=== PATIENT | female | born 1945 | race Caucasian/White ===

== ENCOUNTER → 2016-11-14 06:15 | Outpatient (CLI) | payer BC ==
[2015-09-17 13:02] VITALS: BMI 25.1
[~2016-11-14 06:15] MED LIST: COZAAR25 MG PO; COZAAR50 MG PO; GLUCOPHAGE500 MG PO; LEVEMIR100 U/M1 SC; MOBIC7.5 MG PO; NOVOLOG100 U/M1 SC; PRAVACHOL40 MG PO
== END | disposition home or self-care (01) ==
LOC: D.CT 06:15
DX: N18.9 Chronic kidney disease, unspecified (principal)

== ENCOUNTER → 2017-04-30 12:30 | Outpatient (CLI) | payer BC ==
[2015-09-17 13:02] VITALS: BMI 25.1
[2017-04-30 12:49] LABS: APPEARANCE CLEAR (CLEAR); BILIRUBIN NEGATIVE (NEGATIVE); COLOR YELLOW (YELLOW); GLUCOSE NEGATIVE (NEGATIVE); KETONE NEGATIVE (NEGATIVE); LEUKOCYTE ESTERASE 1+ (NEGATIVE); NITRITE NEGATIVE (NEGATIVE); PROTEIN NEGATIVE (NEGATIVE); SPECIFIC GRAVITY 1.005 (1.005-1.020); UROBILINOGEN NORMAL (NORMAL)
[2017-04-30 12:52] LABS: RED CELLS - URINE 0-5 /hpf (0-5); WHITE CELLS - URINE 25-50 /hpf (0-5)
[2017-04-30 12:55] LABS: EPITHELIAL CELLS 0-5 /hpf (0-5)
[2017-04-30 12:56] LABS: BACTERIA FEW /hpf (NONE SEEN)
== END | disposition home or self-care (01) ==
LOC: D.LAB 12:30
PROVIDERS: Family Medicine
DX: R30.0 Dysuria (principal)

== ENCOUNTER → 2017-05-03 05:46 | Outpatient (CLI) | payer BC ==
[2015-09-17 13:02] VITALS: BMI 25.1
[2017-05-03 06:28] LABS: BASOPHILS 0.2 % (0-2); EOSINOPHILS 1.8 % (0-7); HEMATOCRIT 34.9 % (36.0-48.0); HEMOGLOBIN 11.8 g/dL (12-16); IMMATURE GRANULOCYTES 0.2 % (0-5); LYMPHOCYTES 34.1 % (15-50); MCH 31.7 pg (26.0-34.0); MCHC 33.8 g/dL (31.0-37.0); MCV 93.8 fL (80.0-100.0); MEAN PLATELET VOLUME 9.9 fL (7.4-10.4); MONOCYTES 6.9 % (2-11); NEUTROPHILS 56.8 % (40-80); PLATELET COUNT 187 10x3/uL (130-400); RBC 3.72 10x6/uL (4.00-5.40); RDW 13.1 % (11.5-14.5); WBC 5.1 10x3/uL (4.8-10.8)
[2017-05-03 06:36] LABS: HEMOGLOBIN A1C 8.3 % (4.8-6.0)
[2017-05-03 06:58] LABS: ALBUMIN 3.5 g/dL (3.4-5.0); ANION GAP 15.3 mmol/L (8-16); BILIRUBIN - TOTAL 0.25 mg/dL (0.2-1.3); CALCIUM 8.8 mg/dL (8.5-10.1); CARBON DIOXIDE 22.5 mmol/L (21.0-32.0); CHOL - HDL RATIO 4.3 ratio (2.3-4.1); CREATININE - SERUM 1.4 mg/dL (0.6-1.3); LDL-HDL RATIO 2.7 ratio (1.5-3.5); POTASSIUM - SERUM 4.8 mmol/L (3.5-5.1); THYROID STIMULATING HORMONE 1.61 uIU/mL (0.36-3.74)
== END ==
LOC: D.LAB 05:46
PROVIDERS: Family Medicine
DX: Z00.00 Encounter for general adult medical examination without abnormal findings (principal); E11.9 Type 2 diabetes mellitus without complications; N18.1 Chronic kidney disease, stage 1; I10 Essential (primary) hypertension; E78.5 Hyperlipidemia, unspecified

== ENCOUNTER → 2017-07-13 09:45 | Outpatient (CLI) | payer BC ==
[2015-09-17 13:02] VITALS: BMI 25.1
[2017-07-13 10:59] LABS: APPEARANCE CLEAR (CLEAR); COLOR YELLOW (YELLOW); SPECIFIC GRAVITY 1.015 (1.005-1.020)
[2017-07-13 11:00] LABS: BILIRUBIN NEGATIVE (NEGATIVE); EPITHELIAL CELLS 0-5 /hpf (0-5); GLUCOSE NEGATIVE (NEGATIVE); KETONE NEGATIVE (NEGATIVE); LEUKOCYTE ESTERASE 1+ (NEGATIVE); NITRITE NEGATIVE (NEGATIVE); PROTEIN TRACE mg/dL (NEGATIVE); RED CELLS - URINE 0-5 /hpf (0-5); UROBILINOGEN NORMAL (NORMAL)
[2017-07-13 11:01] LABS: HYALINE CAST 0-5 /lpf (NONE SEEN); MUCUS <1+ /lpf (NONE SEEN)
[2017-07-13 11:02] LABS: GRANULAR CAST RARE /lpf (NONE SEEN)
[2017-07-13 11:03] LABS: BACTERIA MODERATE /hpf (NONE SEEN)
== END | disposition home or self-care (01) ==
LOC: D.LAB 09:45
PROVIDERS: Family Medicine
DX: N39.0 Urinary tract infection, site not specified (principal); B37.9 Candidiasis, unspecified

== ENCOUNTER → 2017-08-13 07:51 | Outpatient (CLI) | payer BC ==
[2015-09-17 13:02] VITALS: BMI 25.1
[2017-08-13 08:21] LABS: BASOPHILS 0.2 % (0-2); EOSINOPHILS 1.3 % (0-7); HEMOGLOBIN 11.9 g/dL (12-16); IMMATURE GRANULOCYTES 0.2 % (0-5); LYMPHOCYTES 30.1 % (15-50); MCH 31.5 pg (26.0-34.0); MCV 92.6 fL (80.0-100.0); MEAN PLATELET VOLUME 9.4 fL (7.4-10.4); MONOCYTES 6.7 % (2-11); NEUTROPHILS 61.5 % (40-80); PLATELET COUNT 187 10x3/uL (130-400); RBC 3.78 10x6/uL (4.00-5.40); RDW 12.9 % (11.5-14.5); WBC 4.6 10x3/uL (4.8-10.8)
[2017-08-13 08:26] LABS: CREATININE - URINE 118.5 mg/dL (30-125); PRO/CRE RATIO URINE 0.4 mg/g; PROTEIN - URINE 45.8 mg/dL (0.0-11.9)
[2017-08-13 08:41] LABS: ANION GAP 12.8 mmol/L (8-16); CALCIUM 8.8 mg/dL (8.5-10.1); CARBON DIOXIDE 25.1 mmol/L (21.0-32.0); CREATININE - SERUM 1.6 mg/dL (0.6-1.3); PHOSPHOROUS 3.5 mg/dL (2.5-4.9); POTASSIUM - SERUM 4.9 mmol/L (3.5-5.1)
== END | disposition home or self-care (01) ==
LOC: D.LAB 07:51
PROVIDERS: Internal Medicine Nephrology
DX: Z90.5 Acquired absence of kidney (principal); I12.9 Hypertensive chronic kidney disease with stage 1 through stage 4 chronic kidney disease, or unspecified chronic kidney disease; N18.2 Chronic kidney disease, stage 2 (mild); E11.22 Type 2 diabetes mellitus with diabetic chronic kidney disease; Z68.27 Body mass index [BMI] 27.0-27.9, adult

== ENCOUNTER → 2017-09-03 08:41 | Outpatient (CLI) | payer BC ==
[2015-09-17 13:02] VITALS: BMI 25.1
== END | disposition home or self-care (01) ==
LOC: D.RAD 08:41
DX: M25.521 Pain in right elbow (principal); M25.531 Pain in right wrist; M79.601 Pain in right arm

== ENCOUNTER → 2017-09-14 13:28 | Outpatient (CLI) | payer BC ==
[2015-09-17 13:02] VITALS: BMI 25.1
== END | disposition home or self-care (01) ==
LOC: D.LAB 13:28
DX: R30.0 Dysuria (principal)

== ENCOUNTER → 2017-10-19 12:39 | Outpatient (CLI) | payer BC ==
[2015-09-17 13:02] VITALS: BMI 25.1
== END | disposition home or self-care (01) ==
LOC: D.MAMMO 11:00
DX: Z12.31 Encounter for screening mammogram for malignant neoplasm of breast (principal)

== ENCOUNTER → 2018-01-29 05:25 | Outpatient (CLI) | payer BC ==
[2015-09-17 13:02] VITALS: BMI 25.1
== END | disposition home or self-care (01) ==
LOC: D.US 05:25
DX: N64.4 Mastodynia (principal)

== ENCOUNTER → 2018-02-13 05:40 | Outpatient (CLI) | payer BC ==
[2015-09-17 13:02] VITALS: BMI 25.1
[2018-02-13 06:28] LABS: ALBUMIN 3.6 g/dL (3.4-5.0); ANION GAP 13.9 mmol/L (8-16); BILIRUBIN - TOTAL 0.3 mg/dL (0.2-1.3); CALCIUM 8.7 mg/dL (8.5-10.1); CARBON DIOXIDE 24.3 mmol/L (21.0-32.0); CHOL - HDL RATIO 3.7 ratio (2.3-4.1); LDL-HDL RATIO 2.4 ratio (1.5-3.5); POTASSIUM - SERUM 5.2 mmol/L (3.5-5.1); PROTEIN - SERUM 7.3 g/dL (6.4-8.2); THYROID STIMULATING HORMONE 1.06 uIU/mL (0.36-3.74)
[2018-02-13 06:57] LABS: BASOPHILS 0.2 % (0-2); EOSINOPHILS 2.1 % (0-7); HEMATOCRIT 33.8 % (36.0-48.0); HEMOGLOBIN 11.1 g/dL (12-16); IMMATURE GRANULOCYTES 0.2 % (0-5); LYMPHOCYTES 29.8 % (15-50); MCHC 32.8 g/dL (31.0-37.0); MCV 94.4 fL (80.0-100.0); MEAN PLATELET VOLUME 9.6 fL (7.4-10.4); MONOCYTES 6.9 % (2-11); NEUTROPHILS 60.8 % (40-80); PLATELET COUNT 202 10x3/uL (130-400); RBC 3.58 10x6/uL (4.00-5.40); RDW 12.9 % (11.5-14.5); WBC 5.8 10x3/uL (4.8-10.8)
== END | disposition home or self-care (01) ==
LOC: D.LAB 05:40
PROVIDERS: Family Medicine
DX: I10 Essential (primary) hypertension (principal); E11.9 Type 2 diabetes mellitus without complications; M51.9 Unspecified thoracic, thoracolumbar and lumbosacral intervertebral disc disorder; G09 Sequelae of inflammatory diseases of central nervous system

== ENCOUNTER → 2018-03-26 05:10 | Outpatient (CLI) | payer BC ==
[2015-09-17 13:02] VITALS: BMI 25.1
[2018-03-26 05:50] LABS: ANION GAP 14.7 mmol/L (8-16); CALCIUM 8.9 mg/dL (8.5-10.1); CARBON DIOXIDE 24.8 mmol/L (21.0-32.0); POTASSIUM - SERUM 4.5 mmol/L (3.5-5.1)
== END | disposition home or self-care (01) ==
LOC: D.LAB 03-25 12:48
PROVIDERS: Family Medicine
DX: E11.9 Type 2 diabetes mellitus without complications (principal); I10 Essential (primary) hypertension

== ENCOUNTER → 2018-05-16 07:29 | Outpatient (CLI) | payer BC ==
[2015-09-17 13:02] VITALS: BMI 25.1
[2018-05-16 08:57] LABS: CREATININE - SERUM 1.9 mg/dL (0.6-1.3)
== END | disposition home or self-care (01) ==
LOC: D.CT 07:29
PROVIDERS: Urology
DX: Z85.528 Personal history of other malignant neoplasm of kidney (principal); Z90.5 Acquired absence of kidney

== ENCOUNTER → 2018-05-22 05:27 | Outpatient (CLI) | payer BC ==
[2015-09-17 13:02] VITALS: BMI 25.1
== END | disposition home or self-care (01) ==
LOC: D.CT 05:27
DX: R91.8 Other nonspecific abnormal finding of lung field (principal)

== ENCOUNTER → 2018-06-19 10:51 | Outpatient (CLI) | payer BC ==
[2015-09-17 13:02] VITALS: BMI 25.1
[2018-06-19 11:05] LABS: ANION GAP 12.8 mmol/L (8-16); CALCIUM 8.8 mg/dL (8.5-10.1); CARBON DIOXIDE 26.5 mmol/L (21.0-32.0); CREATININE - SERUM 1.9 mg/dL (0.6-1.3); POTASSIUM - SERUM 5.3 mmol/L (3.5-5.1)
== END | disposition home or self-care (01) ==
LOC: D.LAB 10:51
PROVIDERS: Family Medicine
DX: E11.9 Type 2 diabetes mellitus without complications (principal); Z79.4 Long term (current) use of insulin; C64.9 Malignant neoplasm of unspecified kidney, except renal pelvis

== ENCOUNTER → 2018-07-11 05:28 | Outpatient (CLI) | payer BC ==
[2015-09-17 13:02] VITALS: BMI 25.1
[2018-07-11 06:32] LABS: ALBUMIN 3.5 g/dL (3.4-5.0); ANION GAP 11.9 mmol/L (8-16); BILIRUBIN - TOTAL 0.37 mg/dL (0.2-1.3); CALCIUM 8.4 mg/dL (8.5-10.1); CARBON DIOXIDE 25.7 mmol/L (21.0-32.0); CREATININE - SERUM 1.7 mg/dL (0.6-1.3); POTASSIUM - SERUM 4.6 mmol/L (3.5-5.1); PROTEIN - SERUM 6.9 g/dL (6.4-8.2)
== END | disposition home or self-care (01) ==
LOC: D.LAB 05:28
PROVIDERS: Family Medicine
DX: E11.9 Type 2 diabetes mellitus without complications (principal); I10 Essential (primary) hypertension; R60.9 Edema, unspecified

== ENCOUNTER → 2018-10-11 05:15 | Outpatient (CLI) | payer BC ==
[2015-09-17 13:02] VITALS: BMI 25.1
[2018-10-11 05:53] LABS: BASOPHILS 0.1 % (0-2); EOSINOPHILS 0 % (0-7); HEMATOCRIT 33.9 % (36.0-48.0); HEMOGLOBIN 11.4 g/dL (12-16); IMMATURE GRANULOCYTES 0.2 % (0-5); LYMPHOCYTES 19.6 % (15-50); MCH 30.8 pg (26.0-34.0); MCHC 33.6 g/dL (31.0-37.0); MCV 91.6 fL (80.0-100.0); MEAN PLATELET VOLUME 9.8 fL (7.4-10.4); MONOCYTES 4.8 % (2-11); NEUTROPHILS 75.3 % (40-80); PLATELET COUNT 219 10x3/uL (130-400); WBC 8.1 10x3/uL (4.8-10.8)
== END | disposition home or self-care (01) ==
LOC: D.LAB 05:15
PROVIDERS: Family Medicine
DX: R05 Cough (principal)

== ENCOUNTER → 2018-10-25 05:16 | Outpatient (CLI) | payer BC ==
[2015-09-17 13:02] VITALS: BMI 25.1
== END | disposition home or self-care (01) ==
LOC: D.CT 05:16
DX: R91.1 Solitary pulmonary nodule (principal)

== ENCOUNTER 2019-01-21 05:10 | Day surgery (SDC) | payer BC ==
[2019-01-20 13:09] LABS: HEMATOCRIT 33.3 % (36.0-48.0); HEMOGLOBIN 11.2 g/dL (12-16); MCH 30.7 pg (26.0-34.0); MCHC 33.6 g/dL (31.0-37.0); MCV 91.2 fL (80.0-100.0); MEAN PLATELET VOLUME 9.3 fL (7.4-10.4); RBC 3.65 10x6/uL (4.00-5.40); RDW 13.1 % (11.5-14.5); WBC 5.1 10x3/uL (4.8-10.8)
[2019-01-20 13:15] LABS: INR 0.97 (0.85-1.17); PROTIME 12.4 SECONDS (11.6-15.0)
[2019-01-20 13:17] LABS: ANION GAP 15.6 mmol/L (8-16); CARBON DIOXIDE 23.4 mmol/L (21.0-32.0)
[~2019-01-21] VITALS: Ht 157.5 cm; Wt 68.0 kg
[~2019-01-21 05:10] MED LIST changes: +GLUCOTROL 5 MG T5 MG PO; +LEVEMIR FL100 UNIT/1 SQ; -LEVEMIR100 U/M1 SC; +NORVASC5 MG PO
[2019-01-21] MEDS ORDERED: NORVASC5 MG PO (05:49)
[2019-01-21 05:52] VITALS: BP 124/54; Ht 157.5 cm; Wt 68.0 kg
[2019-01-21] MEDS ORDERED: HYDROCODON-ACE1 EAC7 PO (07:36)
[2019-01-21] MEDS ORDERED: DURICEF500 MG PO (07:36)
--- NOTE | 2019-01-21 07:54 | NUR ---
CARE ASSUMED FROM TULIO ELISE RN
--- NOTE | 2019-01-21 13:10 | OP ---
PATIENT NAME: HARRY GRIMM MEDICAL RECORD: [id number] :45 LOCATION:[facility] ADMISSION DATE: SURGEON: KUSHAL PIERRE DO DATE OF OPERATION: 01/21/2019 PROCEDURE PERFORMED: Left index A1 mannie release. PREOPERATIVE DIAGNOSIS: Left index trigger finger. POSTOPERATIVE DIAGNOSIS: Left index trigger finger. INDICATIONS: Ms. Grimm is a 73-year-old female who has had the other 9 A1 pulleys released, but this one was not triggering at that time and this just started recently. She said she had injections in the past that did not help. She wanted something done surgically as soon as possible. She is tired of it, affecting her activities of living, she has to wake up in the morning and have to extend it herself as it was caught. She is aware of the risks and benefits of the procedure including infection, bleeding, damage to nerves and vessels, need for further surgery and she signed the consent. SURGEON: Kushal Pierre DO DESCRIPTION OF PROCEDURE: The patient was taken to the operative suite, laid in supine position, given general anesthetic. LMA was placed, given 2 grams Ancef preoperatively. Left upper extremity was prepped and draped in sterile fashion. Timeout was performed, everyone was in agreement with the correct side, site, patient, and procedure. The Esmarch was then used to exsanguinate the left upper extremity and tourniquet was inflated to 250 mmHg, it was up for 9 minutes throughout the procedure. Incision began longitudinally over the A1 mannie and over the index finger of the left hand with a 15 blade scalpel. Then, blunt dissection was made down to the A1 mannie with Ragnells. Any soft tissue was released off of the A1 mannie at that time with a pickup and scissors. Then, the A1 mannie was released from [id number] and the flexor tendons were pulled up through the skin, ensuring that there was no triggering or it was not caught as well as the finger was flexed and extended easily. The tourniquet was then let down at 9 minutes and then 6 mL of 0.5% Marcaine were injected around the site. Any bleeding was coagulated with a bipolar at that time. The incision was then closed with 4-0 nylon and 2 horizontal mattress sutures and then Adaptic, 4 x 4's, Kerlix, and Coban was lightly wrapped on the hand. The patient was awakened and taken to recovery in stable condition. BLOOD LOSS: Minimal. COMPLICATIONS: None. TRANSINT:[id number] Voice Confirmation ID: [id number] DOCUMENT ID: [id number] OPERATIVE REPORT [id number] HARRY GRIMM MICHAEL D, DO at 1310 CC: [id number] DICTATION DATE: 01/21/19 0744 [employer] MAKER: 01/21/19 0927 [facility] [address] [place] [address]
== END 2019-01-21 09:24 | disposition home or self-care (01) ==
LOC: D.PAN → D.OPS 05:10 → D.PAN 13:30
PROVIDERS: Anesthesiology; ATTEND Orthopaedic Surgery
DX: M65.322 Trigger finger, left index finger (principal); Z01.812 Encounter for preprocedural laboratory examination

== ENCOUNTER → 2019-04-24 05:27 | Outpatient (CLI) | payer BC ==
[2019-01-21 05:52] VITALS: BMI 27.5
[~2019-04-24 05:27] MED LIST changes: +DURICEF500 MG PO; +HYDROCODON-ACE1 EAC7 PO
[2019-04-24 05:49] LABS: BASOPHILS 0.2 % (0-2); EOSINOPHILS 1.9 % (0-7); HEMATOCRIT 34.1 % (36.0-48.0); HEMOGLOBIN 11.5 g/dL (12-16); IMMATURE GRANULOCYTES 0.2 % (0-5); LYMPHOCYTES 24.2 % (15-50); MCH 30.4 pg (26.0-34.0); MCHC 33.7 g/dL (31.0-37.0); MCV 90.2 fL (80.0-100.0); MEAN PLATELET VOLUME 9.4 fL (7.4-10.4); MONOCYTES 5.4 % (2-11); NEUTROPHILS 68.1 % (40-80); PLATELET COUNT 198 10x3/uL (130-400); RBC 3.78 10x6/uL (4.00-5.40); RDW 13.4 % (11.5-14.5); WBC 6.3 10x3/uL (4.8-10.8)
[2019-04-24 06:12] LABS: ALBUMIN 3.5 g/dL (3.4-5.0); ANION GAP 12.1 mmol/L (8-16); BILIRUBIN - TOTAL 0.28 mg/dL (0.2-1.3); CALCIUM 8.4 mg/dL (8.5-10.1); CARBON DIOXIDE 26.5 mmol/L (21.0-32.0); CHOL - HDL RATIO 3.8 ratio (2.3-4.1); CREATININE - SERUM 1.6 mg/dL (0.6-1.3); LDL-HDL RATIO 2.3 ratio (1.5-3.5); POTASSIUM - SERUM 4.6 mmol/L (3.5-5.1); PROTEIN - SERUM 7.2 g/dL (6.4-8.2); THYROID STIMULATING HORMONE 1.31 uIU/mL (0.36-3.74)
[2019-04-24 07:31] LABS: APPEARANCE CLEAR (CLEAR); BILIRUBIN NEGATIVE (NEGATIVE); COLOR YELLOW (YELLOW); GLUCOSE NEGATIVE (NEGATIVE); KETONE NEGATIVE (NEGATIVE); NITRITE NEGATIVE (NEGATIVE); PROTEIN NEGATIVE (NEGATIVE); UROBILINOGEN NORMAL (NORMAL)
[2019-04-24 07:32] LABS: BACTERIA FEW /hpf (NONE SEEN); EPITHELIAL CELLS 0-5 /hpf (0-5); MUCUS <1+ /lpf (NONE SEEN); WHITE CELLS - URINE OCC /hpf (0-5)
[2019-04-24 07:33] LABS: TALC POWDER CRYSTALS 0-5 /hpf (NONE SEEN)
== END | disposition home or self-care (01) ==
LOC: D.LAB 04-23 15:51
PROVIDERS: ATTEND Family Medicine
DX: I10 Essential (primary) hypertension (principal); M19.90 Unspecified osteoarthritis, unspecified site; E11.9 Type 2 diabetes mellitus without complications

== ENCOUNTER → 2019-06-26 09:50 | Outpatient (CLI) | payer BC ==
[2019-01-21 05:52] VITALS: BMI 27.5
[2019-06-26 10:19] LABS: ANION GAP 12.4 mmol/L (8-16); CALCIUM 8.7 mg/dL (8.5-10.1); CARBON DIOXIDE 26.9 mmol/L (21.0-32.0); CREATININE - SERUM 1.7 mg/dL (0.6-1.3); POTASSIUM - SERUM 4.3 mmol/L (3.5-5.1)
== END | disposition home or self-care (01) ==
LOC: D.LAB 09:50
PROVIDERS: ATTEND Family Medicine
DX: E11.22 Type 2 diabetes mellitus with diabetic chronic kidney disease (principal); I12.9 Hypertensive chronic kidney disease with stage 1 through stage 4 chronic kidney disease, or unspecified chronic kidney disease; N18.9 Chronic kidney disease, unspecified

== ENCOUNTER 2019-11-29 15:07 | Inpatient (IN) | payer BC ==
[~2019-11-29] VITALS: Ht 157.5 cm; Wt 68.0 kg
[2019-11-29 17:14] LABS: BASOPHILS 0.1 % (0-2); EOSINOPHILS 0.2 % (0-7); HEMATOCRIT 35.3 % (36.0-48.0); HEMOGLOBIN 11.8 g/dL (12-16); IMMATURE GRANULOCYTES 0.2 % (0-5); MCH 30.9 pg (26.0-34.0); MCHC 33.4 g/dL (31.0-37.0); MCV 92.4 fL (80.0-100.0); MEAN PLATELET VOLUME 9.4 fL (7.4-10.4); MONOCYTES 6.4 % (2-11); NEUTROPHILS 82.1 % (40-80); PLATELET COUNT 177 10x3/uL (130-400); RBC 3.82 10x6/uL (4.00-5.40); RDW 13.2 % (11.5-14.5); WBC 10.9 10x3/uL (4.8-10.8)
[2019-11-29 17:22] LABS: CALC OSMOLALITY 272 mosm/kg (275-300); CALCIUM 8.4 mg/dL (8.5-10.1); CARBON DIOXIDE 28.2 mmol/L (21.0-32.0); CHLORIDE - SERUM 97 mmol/L (98-107); CREATININE - SERUM 1.7 mg/dL (0.6-1.3); GLUCOSE 160 mg/dL (74-106); POTASSIUM - SERUM 4.2 mmol/L (3.5-5.1); SODIUM 133 mmol/L (136-145); UREA NITROGEN 23 mg/dL (7-18); eGFR NON AFRICAN AMERICAN 31 mL/min (90-120)
[2019-11-29 17:37] LABS: ALBUMIN 3.3 g/dL (3.4-5.0); ALKALINE PHOSPHATASE 115 U/L (30-120); ALT (SGPT) 84 U/L (10-68); BILIRUBIN - TOTAL 0.63 mg/dL (0.2-1.3); CKMB 0.7 U/L (0.0-3.6); CREATINE KINASE 103 UL (21-215); MAGNESIUM - SERUM 1.9 mg/dL (1.8-2.4); PROTEIN - SERUM 7.4 g/dL (6.4-8.2); TROPONIN-I < 0.017 ng/mL (0.000-0.060)
--- NOTE | 2019-11-29 18:11 | NUR ---
PT TRANSPORTED TO CT AT THIS TIME.
[2019-11-29 18:33] VITALS: BP 132/57
[2019-11-29 19:40] VITALS: BP 137/67
--- NOTE | 2019-11-29 20:40 | NUR ---
PT ARRIVED TO ROOM FROM ER VIA STRETCHER. PT AMBULATORY, GAIT SLOW AND STEADY. RR EVEN AND UNLABORED, NO S/SX OF DISTRESS OBSERVED AT THIS TIME. CALL LIGHT IN REACH. WILL MONITOR.
[2019-11-29] MEDS ORDERED: LANTUS SQ (22:09)
[2019-11-29 23:16] VITALS: BP 123/45
[2019-11-29] MEDS ORDERED: KEFLEX500 MG PO (23:17)
[2019-11-30 01:24] VITALS: BP 141/61
[2019-11-30 04:59] VITALS: BP 123/44
[2019-11-30 05:12] LABS: BASOPHILS 0.2 % (0-2); EOSINOPHILS 0.6 % (0-7); HEMATOCRIT 33.3 % (36.0-48.0); IMMATURE GRANULOCYTES 0.1 % (0-5); LYMPHOCYTES 10.4 % (15-50); MCH 30.5 pg (26.0-34.0); MCV 92.2 fL (80.0-100.0); MEAN PLATELET VOLUME 9.5 fL (7.4-10.4); MONOCYTES 7.1 % (2-11); NEUTROPHILS 81.6 % (40-80); PLATELET COUNT 171 10x3/uL (130-400); RBC 3.61 10x6/uL (4.00-5.40); RDW 13.2 % (11.5-14.5); WBC 8.8 10x3/uL (4.8-10.8)
[2019-11-30 05:39] LABS: ALBUMIN 2.8 g/dL (3.4-5.0); ANION GAP 12.5 mmol/L (8-16); BILIRUBIN - TOTAL 0.56 mg/dL (0.2-1.3); CALCIUM 8.1 mg/dL (8.5-10.1); CARBON DIOXIDE 25.5 mmol/L (21.0-32.0); CREATININE - SERUM 1.6 mg/dL (0.6-1.3); PROTEIN - SERUM 6.8 g/dL (6.4-8.2)
--- NOTE | 2019-11-30 07:27 | NUR ---
PT RESTING PEACEFULLY IN BED, EYES CLOSED, RESPIRATIONS EVEN AND UNLABORED. NO SIGNS OR SYMTPOMS OF ACUTE DISTRESS NOTED AT THIS TIME. CL INREACH SRX2.
[2019-11-30 09:04] LABS: CHOL - HDL RATIO 4.2 ratio (2.3-4.1); LDL-HDL RATIO 2.6 ratio (1.5-3.5)
[2019-11-30 09:50] VITALS: BP 133/65
--- NOTE | 2019-11-30 13:55 | NUR ---
PT AWAKE/ALERT/ORIENTED, LYING IN BED WATCHING TELIVISION. SHE HAS NO COMPLAINTS OR CONCERN, ALL QUESTIONS ANSWERED TO THE BEST OF MY ABILITY. NO FAMILY PRESENT AT BEDSIDE, THOUGH HAS BEEN IN AND OUT. PT MOVES INDEPENDENTLY WITHOUT DIFFICULTY. CL IN REACH, SRX2.
[2019-11-30 14:15] VITALS: BP 124/53
--- NOTE | 2019-11-30 17:19 | NUR ---
I have reviewed this patient and I concur with the Shift Assessment completed by the Licensed Practical Nurse today this shift.
[2019-11-30 18:34] VITALS: BP 119/53
--- NOTE | 2019-11-30 19:10 | NUR ---
REPORT RECEIVED. PT CARE ASSUMED. PT UP IN BED WATCHING TV, RR EVEN AND UNLABORED ON RA. FREQUENT NON-PRODUCTIVE COUGH. DENIES NEEDS AT THIS TIME. AT BEDSIDE, CALL LIGHT IN REACH. WILL CTM.
[2019-11-30 20:00] VITALS: BP 132/62
[2019-12-01] VITALS (7 sets, daily range): BP systolic 111–131; BP diastolic 45–66; Ht 157.5 cm; Wt 68.0 kg
[2019-12-01 05:00] LABS: BASOPHILS 0.2 % (0-2); EOSINOPHILS 1.8 % (0-7); HEMATOCRIT 32.1 % (36.0-48.0); HEMOGLOBIN 10.7 g/dL (12-16); IMMATURE GRANULOCYTES 0.3 % (0-5); LYMPHOCYTES 19.2 % (15-50); MCH 30.4 pg (26.0-34.0); MCHC 33.3 g/dL (31.0-37.0); MCV 91.2 fL (80.0-100.0); MEAN PLATELET VOLUME 9.6 fL (7.4-10.4); MONOCYTES 6.8 % (2-11); NEUTROPHILS 71.7 % (40-80); PLATELET COUNT 177 10x3/uL (130-400); RBC 3.52 10x6/uL (4.00-5.40); RDW 13.3 % (11.5-14.5); WBC 6.7 10x3/uL (4.8-10.8)
[2019-12-01 05:22] LABS: ANION GAP 12.9 mmol/L (8-16); CALCIUM 8.4 mg/dL (8.5-10.1); CARBON DIOXIDE 26.2 mmol/L (21.0-32.0); CREATININE - SERUM 1.4 mg/dL (0.6-1.3); POTASSIUM - SERUM 4.1 mmol/L (3.5-5.1)
--- NOTE | 2019-12-01 07:14 | NUR ---
PT AWAKE AND ORIENTED, LYING IN BED. NO FAMILY AT BEDISDE. NO COMPLAINTS OR CONCERNS AT THIS TIME. CL IN REACH, SRX2.
--- NOTE | 2019-12-01 09:51 | NUR ---
PT AWAKE AND ORIENTED, STATES SHE COUGHED ALL NIGHT IS VERY TIRED FROM DOING SO. NO COMPLAINTS OR CONCERNS OTHER THANTHE COUGHING. ANSWERED AL QUESTIONS TO THE BEST OF MY ABILITY. NO FAMILY AT BEDSIDE. CL IN REACH, SRX2.
[2019-12-01 09:55] LABS: APPEARANCE CLEAR (CLEAR); COLOR YELLOW (YELLOW)
[2019-12-01 09:56] LABS: BACTERIA FEW /hpf (NEGATIVE); BILIRUBIN NEGATIVE (NEGATIVE); EPITHELIAL CELLS 0-5 /hpf (0-5); GLUCOSE NEGATIVE (NEGATIVE); GRANULAR CAST RARE /lpf (NONE SEEN); KETONE NEGATIVE (NEGATIVE); NITRITE NEGATIVE (NEGATIVE); PROTEIN 1+ mg/dL (NEGATIVE); RED CELLS - URINE OCC /hpf (0-5); UROBILINOGEN NORMAL (NORMAL); WHITE CELLS - URINE OCC /hpf (NEGATIVE)
--- NOTE | 2019-12-01 11:47 | NUR ---
I have reviewed this patient and I concur with the Shift Assessment completed by the Licensed Practical Nurse today this shift.
--- NOTE | 2019-12-01 19:20 | NUR ---
REPORT RECEIVED, WILL CONTINUE POC. PATIENT IS AAOX4, LYING IN SEMI-FOWLERS POSITION. NO S/S OF DISTRESS OBSERVED, RR EVEN AND UNLABORED ON ROOM AIR. PIV TO LT HAND, AZITHROMYCIN INFUSING AT THIS TIME THEN WILL SALINE LOCK. PATIENT DENIES NEEDS AT THIS TIME. CL IN REACH, BED LOCKED AND LOWERED. WILL CTM.
--- NOTE | 2019-12-01 20:56 | NUR ---
FSBS 488, 20 UNITS HUMALOG ADMINISTERED PER ORDER AND DR. AMANDA JONES.
--- NOTE | 2019-12-01 21:29 | NUR ---
PAGED DR. PATEL FOR THE 2ND TIME FOR PATIENT FSBS 488
--- NOTE | 2019-12-01 22:16 | NUR ---
CALLED DR. PATEL'S OFFICE NUMBER DUE TO PAGES NOT BEING RETURNED. PERSON IN OFFICE SAID SHE'D WOULD TEXT HIM, CALLBACK NUMBER GIVEN TO CAMELID FIBER SORTER.
--- NOTE | 2019-12-01 22:24 | NUR ---
SPOKE TO DR. PATEL, HE INSTRUCTED TO ADMINISTERED 12UNITS OF HUMALOG. SPOKE WITH PATIENT WHO SAID THAT'S STILL WAY TOO MUCH FOR HER NOW BLOOD SUGAR OF 402. SHE SAID SHE WILL TAKE 5 UNITS AND TO RECHECK HER FSBS IN AN HOUR.
--- NOTE | 2019-12-02 03:47 | NUR ---
I have reviewed this patient and I concur with the Shift Assessment completed by the Licensed Practical Nurse today this shift.
[2019-12-02 04:30] VITALS: BP 110/62
[2019-12-02 06:49] LABS: BASOPHILS 0.5 % (0-2); EOSINOPHILS 3.1 % (0-7); HEMATOCRIT 31.4 % (36.0-48.0); HEMOGLOBIN 10.6 g/dL (12-16); IMMATURE GRANULOCYTES 0.2 % (0-5); MCH 30.5 pg (26.0-34.0); MCHC 33.8 g/dL (31.0-37.0); MCV 90.5 fL (80.0-100.0); MEAN PLATELET VOLUME 9.4 fL (7.4-10.4); MONOCYTES 8.5 % (2-11); NEUTROPHILS 60.7 % (40-80); PLATELET COUNT 208 10x3/uL (130-400); RBC 3.47 10x6/uL (4.00-5.40); RDW 13.2 % (11.5-14.5)
[2019-12-02 06:53] LABS: WBC 4.3 10x3/uL (4.8-10.8)
[2019-12-02 06:55] LABS: ANION GAP 14.1 mmol/L (8-16); CALCIUM 8.2 mg/dL (8.5-10.1); CREATININE - SERUM 1.4 mg/dL (0.6-1.3); POTASSIUM - SERUM 4.1 mmol/L (3.5-5.1)
--- NOTE | 2019-12-02 07:23 | NUR ---
REPORT RECEIVED. WILL CONTINUE WITH POC. PT CURRENTLY LYING SEMI FOWLERS. CALL LIGHT W/I REACH. PT IS AAO AND UP AD HEATH. RR EVEN AND UNLABORED ON RA. PT CURRENTLY UNDERGOING RESP TRX. L.HAND PIV SALINE LOCKED. NO S/S OF DISTRESS NOTED. PT DENIES ANY NEEDS. WILL CTM.
[2019-12-02 08:32] VITALS: BP 120/58
[2019-12-02 13:01] VITALS: BP 124/50
--- NOTE | 2019-12-02 15:42 | NUR ---
I have reviewed this patient and I concur with the Shift Assessment completed by the Licensed Practical Nurse today this shift.
[2019-12-02 16:53] VITALS: BP 127/73
--- NOTE | 2019-12-02 19:20 | NUR ---
REPORT RECEIVED, WILL CONTINUE POC. PATIENT IS AAOX4, LYING IN SEMI-FOWLERS POSITION. NO S/S OF DISTRESS OBSERVED, RR EVEN AND UNLABORED ON ROOM AIR. PIV TO LT HAND, URIEL ROBERTO, VANDANA C/D/I. INFORMED PATIENT IV ABX WERE DUE AT 1900 AND THIS NURSE WOULD BE BACK TO BEGIN INFUSION. SHE C/O OF IV SITE PAIN WHEN ANY ABX ARE BEING INFUSED AND REQUESTED AN ICE PACK. PATIENT DENIES FURTHER NEEDS AT THIS TIME. CL IN REACH, BED LOCKED AND LOWERED. WILL CTM.
--- NOTE | 2019-12-02 19:41 | NUR ---
BROUGHT PATIENT ICE PACK FOR IV SITE. OFFERED TO RESITE IV TO A LESS SENSITIVE AREA, PATIENT REFUSED. BEGAN ROCEPHIN INFUSION. PATIENT TOLERATED WELL.
[2019-12-02 20:00] VITALS: BP 118/58
[2019-12-03] VITALS: BP 138/60
--- NOTE | 2019-12-03 01:14 | NUR ---
I have reviewed this patient and I concur with the Shift Assessment completed by the Licensed Practical Nurse today this shift.
[2019-12-03 04:00] VITALS: BP 127/53
[2019-12-03] MEDS ORDERED: Tessalon Perle PO ×2 (07:17→07:28)
[2019-12-03] MEDS ORDERED: Augmentin 500-125 TA PO ×2 (07:17→07:28)
--- NOTE | 2019-12-03 07:42 | NUR ---
PATIENT IS AWAKE AND ALERT. SHE HAS HAD MANY VISITORS. SHE WILL GET HER LAST ROUND OF ANTIBIOTICS AND BE DISCHARGED TODAY.
--- NOTE | 2019-12-03 08:23 | MORECARE ---
CASE MANAGEMENT DISCHARGE SUMMARY PATIENT: HARRY HAYS UNIT: [id number] ADM DATE: 11/29/19 AGE: 74 : 45 SEX: F ROOM/BED: D.2110 AUTHOR: CUCA CARRANZA PHYSICIAN: REFERRING PHYSICIAN: HAILEY PATEL MD DATE OF SERVICE: 12/03/19 Discharge Plan Patient Name: HARRY HAYS Facility: [facility]:[place] : 1945 Planned Disposition: Home or Self Care Anticipated Discharge Date: Discharge Date: Expected LOS: Initial Reviewer: [email or web address] Initial Review Date: 12/03/2019 Generated: 12/03/19 9:22 am Patient Name: HARRY HAYS Page 62029 at 0823 All edits/amendments must be made on the electronic document DICTATION DATE: 12/03/19821 MIGRATORY FARM HAND: FILEMON 12/03/19821 RPT#: [id number] DC DATE: STATUS: ADM IN [facility] [address] [place] [address] END OF REPORT
--- NOTE | 2019-12-03 08:30 | MORECARE ---
CASE MANAGEMENT DISCHARGE SUMMARY PATIENT: HARRY HAYS UNIT: [id number] ADM DATE: 11/29/19 AGE: 74 : 45 SEX: F ROOM/BED: D.8440 AUTHOR: DILLONDOC PHYSICIAN: REFERRING PHYSICIAN: HAILEY PATEL MD DATE OF SERVICE: 12/03/19 Discharge Plan Patient Name: HARRY HAYS Facility: [facility]:[place] : 1945 Planned Disposition: Home or Self Care Anticipated Discharge Date: Discharge Date: Expected LOS: Initial Reviewer: [email or web address] Initial Review Date: 12/03/2019 Generated: 12/03/19 9:30 am Comments DCP- Discharge Planning Updated by [email or web address]: Gege Doty on 12/03/19 7:[address] Patient Name: HARRY HAYS Admission Status: ER Accout number: [id number] Admission Date: 11-29-2019 : 1945 Admission Diagnosis: Attending: HAILEY PATEL Current LOS: 4 Anticipated DC Date: Planned Disposition: Home or Self Care Primary Insurance: BCTNLIFE Discharge Planning Comments: CM met with patient to complete initial dc planning assessment. CM educated patient on the CM role and verbal consent given by patient to complete assessment. CM verified patient's address, phone number, and emergency contact phone numbers. Patient lives at home with her Tierney. At discharge patient plans to return home and feels this is a safe discharge. CM discussed availability of home health, rehab services, and medical equipment. Patient denied known discharge needs at this time. Transportation provider at discharge will be Tierney. CM will continue to follow and will assist as needed with dc plans/needs. Studio Director: Gege Doty DCPIA - Discharge Planning Initial Assessment Updated by [email or web address]: Gege Doty on 12/03/19 8:24 am * Is the patient Alert and Oriented? Yes * How many steps to enter\exit or inside your home? 0/0 * [facility]CP [facility] * [facility] * Preadmission Environment Home with Family * ADLs Independent * Equipment Glucometer * List name and contact numbers for known caregivers / representatives who currently or will assist patient after discharge: SOBA () * Verbal permission to speak to the caregivers and representatives has been obtained from the patient. Yes * Community resources currently utilized None * Additional services required to return to the preadmission environment? No * Can the patient safely return to the preadmission environment? Yes * Has this patient been hospitalized within the prior 30 days at any hospital? No Last DP export: 12/03/19 7:23 a Patient Name: HARRY HAYS Page 31314 at 0830 All edits/amendments must be made on the electronic document DICTATION DATE: 12/03/19829 SUPERVISOR STOCK RANCH: FILEMON 12/03/19829 RPT#: [id number] DC DATE: STATUS: ADM IN [facility] [address] [place] [address] END OF REPORT
--- NOTE | 2019-12-03 08:52 | MORECARE ---
CASE MANAGEMENT DISCHARGE SUMMARY PATIENT: AHRRY HAYS UNIT: [id number] ADM DATE: 11/29/19 AGE: 74 : 45 SEX: F ROOM/BED: D.7610 AUTHOR: DILLONDOC PHYSICIAN: REFERRING PHYSICIAN: HAILEY PATEL MD DATE OF SERVICE: 12/03/19 Discharge Plan Patient Name: HARRY HAYS Facility: [facility]:[place] : 1945 Planned Disposition: Home or Self Care Anticipated Discharge Date: 12/03/19 Discharge Date: Expected LOS: 4 Initial Reviewer: [email or web address] Initial Review Date: 12/03/2019 Generated: 12/03/19 9:51 am Comments DCP- Discharge Planning Updated by [email or web address]: Gege Doty on 12/03/19 7:[address] Patient Name: HARRY HAYS Admission Status: ER Accout number: [id number] Admission Date: 11-29-2019 : 1945 Admission Diagnosis: Attending: HAILEY PATEL Current LOS: 4 Anticipated DC Date: Planned Disposition: Home or Self Care Primary Insurance: BCTNLIFE Discharge Planning Comments: CM met with patient to complete initial dc planning assessment. CM educated patient on the CM role and verbal consent given by patient to complete assessment. CM verified patient's address, phone number, and emergency contact phone numbers. Patient lives at home with her Tavares. At discharge patient plans to return home and feels this is a safe discharge. CM discussed availability of home health, rehab services, and medical equipment. Patient denied known discharge needs at this time. Transportation provider at discharge will be Tavares. CM will continue to follow and will assist as needed with dc plans/needs. Japanese Professor: Gege Doty DCPIA - Discharge Planning Initial Assessment Updated by [email or web address]: Gege Doty on 12/03/19 8:24 am * Is the patient Alert and Oriented? Yes * How many steps to enter\exit or inside your home? 0/0 * [facility] * [facility] * Preadmission Environment Home with Family * ADLs Independent * Equipment Glucometer * List name and contact numbers for known caregivers / representatives who currently or will assist patient after discharge: TAVARES () * Verbal permission to speak to the caregivers and representatives has been obtained from the patient. Yes * Community resources currently utilized None * Additional services required to return to the preadmission environment? No * Can the patient safely return to the preadmission environment? Yes * Has this patient been hospitalized within the prior 30 days at any hospital? No Last DP export: 12/03/19 7:30 a Patient Name: HARRY HAYS Page 11213 at 0852 All edits/amendments must be made on the electronic document DICTATION DATE: 12/03/19850 HAZARDOUS WASTE TECHNICIAN: FILEMON 12/03/19850 RPT#: [id number] DC DATE: STATUS: ADM IN [facility] [address] [place] [address] END OF REPORT
--- NOTE | 2019-12-03 09:06 | NUR ---
PATIENT WILL BE DISCHARGED, DR PATEL TOLD ME TO BE SURE THE PATIENT GETS HER IV ANTIBIOTICS BEFORE DISCHARGE. WILL START HER ANTIBIOTICS EARLY SO SHE CAN DISCHARGE IN A TIMELY MANNER.
[2019-12-03 09:53] VITALS: BP 125/56
--- NOTE | 2019-12-03 14:12 | NUR ---
DIACHARGING PATIENT. MEDICATIONS GIVEN ORDERED BY DR PATEL, THE LAST TWO IV ANTIBIOTICS. ALL DISCHARGE TEACHING HAS BEEN DONE AND PAPERS SIGNED. IV REMOVED WITH CATHETER INTACT. SHE IS GETTING DRESSED AND SHE IS TAKING ALL HER PERSONAL BELONGINGS OUT OF THE ROOM WITH HER.
== END 2019-12-03 14:14 | disposition home or self-care (01) | DRG 179 ==
LOC: D.ER 15:07 → D.M2 19:41
PROVIDERS: Emergency Medicine; Family Medicine; ADMIT Family Medicine; ATTEND Family Medicine
DX: J15.6 Pneumonia due to other Gram-negative bacteria (principal); E11.22 Type 2 diabetes mellitus with diabetic chronic kidney disease; I12.9 Hypertensive chronic kidney disease with stage 1 through stage 4 chronic kidney disease, or unspecified chronic kidney disease; N18.3 Chronic kidney disease, stage 3 (moderate); E78.2 Mixed hyperlipidemia; E11.21 Type 2 diabetes mellitus with diabetic nephropathy; D63.1 Anemia in chronic kidney disease; J13 Pneumonia due to Streptococcus pneumoniae

== ENCOUNTER → 2020-01-13 09:11 | Outpatient (CLI) | payer BC ==
[2019-12-19 05:41] VITALS: BMI 27.5
[~2020-01-13 09:11] MED LIST changes: +Augmentin 500-125 TA PO; +KEFLEX500 MG PO; +LANTUS SQ; +Tessalon Perle PO
== END | disposition home or self-care (01) ==
LOC: D.RAD 09:11
PROVIDERS: ATTEND Family Medicine
DX: Z51.89 Encounter for other specified aftercare (principal); J18.9 Pneumonia, unspecified organism

== ENCOUNTER 2020-04-27 05:15 | Day surgery (SDC) | payer BC ==
[2020-04-26 12:08] LABS: HEMOGLOBIN 12.3 g/dL (12-16); MCH 30.8 pg (26.0-34.0); MCHC 33.2 g/dL (31.0-37.0); MCV 92.5 fL (80.0-100.0); MEAN PLATELET VOLUME 9.4 fL (7.4-10.4); RDW 12.9 % (11.5-14.5); WBC 4.2 10x3/uL (4.8-10.8)
[2020-04-26 12:14] LABS: APTT 26.4 SECONDS (22.8-39.4); INR 0.94 (0.85-1.17); PROTIME 12.5 SECONDS (11.6-15.0)
[2020-04-26 12:21] LABS: ANION GAP 12.3 mmol/L (8-16); CALCIUM 8.9 mg/dL (8.5-10.1); CARBON DIOXIDE 28.4 mmol/L (21.0-32.0); CREATININE - SERUM 1.7 mg/dL (0.6-1.3); POTASSIUM - SERUM 4.7 mmol/L (3.5-5.1)
[~2020-04-27] VITALS: Ht 157.5 cm; Wt 68.0 kg
[2020-04-27 05:33] VITALS: BP 138/66; Ht 157.5 cm; Wt 68.0 kg
[2020-04-27] MEDS ORDERED: HYDROCODON-ACE1 EAC7 PO (07:10)
--- NOTE | 2020-04-27 18:23 | OP ---
PATIENT NAME: SCOTT HAYS MEDICAL RECORD: [id number] :45 LOCATION:D.OPS ADMISSION DATE: SURGEON: KUSHAL PIERRE DO DATE OF OPERATION: 04/27/2020 PROCEDURE PERFORMED: Right index finger A1 mannie release. PREOPERATIVE DIAGNOSIS: Right index trigger finger. POSTOPERATIVE DIAGNOSIS: Right index trigger finger. 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 The right index finger got to the point where she could not flex it due to the fact it was caught and could not flex. She had triggering of fingers everywhere else, I told her it was likely due to the A1 mannie being severely clamped down over that tendon and that we could release it. She was okay with that and as were the risks including infection, bleeding, damage to nerves and vessels, need for further surgery, continued pain, numbness, tingling, bowstringing and need for further surgery. She signed the consent. SURGEON: Kushal Pierre DO DESCRIPTION OF PROCEDURE: The patient was taken to the OR suite, laid in supine position, given general anesthetic, a gram of Ancef and an LMA was placed. Right upper extremity was then prepped and draped in sterile fashion. Timeout was performed, everyone was in agreement of correct side, site, patient and procedure. We then began to make a horizontal incision over the crease of the palm and made careful dissection down to the A1 mannie, pulled the nerve that went radially out of the way as it crossed over the incision site and went to the A1 mannie. There was severe congestion and significant amount of fluid there. I then released the A1 mannie and a part of the A2 mannie in order to release the flexor tendon. Once I did that, the finger was able to flex and extend freely and it moved very well. The tourniquet was used to exsanguinate the right upper extremity prior to starting to 250 mmHg, and it was up for 6 minutes. Once the release was completed, I removed some of the synovitis that was in the flexor tendon as well and then the tourniquet was let down. I injected the site with 10 mL of 0.25% Marcaine plain and then Aline Flowers, certified surgical library serials assistant closed the site with 5-0 Monocryl in a horizontal mattress fashion. It was then dressed with Adaptic, 4 x 4s, Kerlix and a Coban lightly wrapped. She was awakened and taken to recovery in stable condition. BLOOD LOSS: Minimal. COMPLICATIONS: None. TRANSINT:[id number] Voice Confirmation ID: [id number] DOCUMENT ID: [id number] OPERATIVE REPORT [id number] SCOTT HAYS MICHAEL D, DO at 1823 CC: [id number] DICTATION DATE: 04/27/20 0714 SUPERVISOR SCENIC ARTS: 04/27/20 1617 [facility] 04/27/20 [facility] [address] [place] [address]
== END 2020-04-27 08:45 | disposition home or self-care (01) ==
LOC: D.OPS 05:15 → D.PAN 07:00 → D.OPS 08:45
PROVIDERS: Anesthesiology; ATTEND Orthopaedic Surgery
DX: M65.321 Trigger finger, right index finger (principal); E11.9 Type 2 diabetes mellitus without complications; Z79.84 Long term (current) use of oral hypoglycemic drugs

== ENCOUNTER → 2020-07-22 06:14 | Outpatient (CLI) | payer BC ==
[2020-04-27 05:33] VITALS: BMI 27.5
[2020-07-22 07:07] LABS: ALBUMIN 3.8 g/dL (3.4-5.0); ANION GAP 15.4 mmol/L (8-16); BILIRUBIN - TOTAL 0.59 mg/dL (0.2-1.3); CALCIUM 8.5 mg/dL (8.5-10.1); CHOL - HDL RATIO 4.3 ratio (2.3-4.1); CREATININE - SERUM 1.6 mg/dL (0.6-1.3); LDL-HDL RATIO 2.8 ratio (1.5-3.5); POTASSIUM - SERUM 4.4 mmol/L (3.5-5.1); PROTEIN - SERUM 7.1 g/dL (6.4-8.2); THYROID STIMULATING HORMONE 1.41 uIU/mL (0.36-3.74)
[2020-07-22 07:17] LABS: BASOPHILS 0.2 % (0-2); EOSINOPHILS 1.7 % (0-7); HEMATOCRIT 34.6 % (36.0-48.0); HEMOGLOBIN 11.6 g/dL (12-16); IMMATURE GRANULOCYTES 0.2 % (0-5); LYMPHOCYTES 32.1 % (15-50); MCH 30.9 pg (26.0-34.0); MCHC 33.5 g/dL (31.0-37.0); MEAN PLATELET VOLUME 9.8 fL (7.4-10.4); MONOCYTES 6.3 % (2-11); NEUTROPHILS 59.5 % (40-80); PLATELET COUNT 181 10x3/uL (130-400); RBC 3.76 10x6/uL (4.00-5.40); RDW 13.1 % (11.5-14.5); WBC 5.4 10x3/uL (4.8-10.8)
== END | disposition home or self-care (01) ==
LOC: D.LAB 06:14
PROVIDERS: ATTEND Family Medicine
DX: Z00.00 Encounter for general adult medical examination without abnormal findings (principal); E11.9 Type 2 diabetes mellitus without complications; E78.3 Hyperchylomicronemia; N18.9 Chronic kidney disease, unspecified

== ENCOUNTER → 2020-08-19 07:02 | Outpatient (CLI) | payer MEDICARE, OTHER ==
[2020-04-27 05:33] VITALS: BMI 27.5
[2020-08-19 08:07] LABS: CREATININE - SERUM 1.6 mg/dL (0.6-1.3)
== END | disposition home or self-care (01) ==
LOC: D.CT 07:02
PROVIDERS: ATTEND Urology
DX: Z85.528 Personal history of other malignant neoplasm of kidney (principal); Z52.4 Kidney donor

== ENCOUNTER → 2021-02-10 11:18 | Outpatient (CLI) | payer MEDICARE, OTHER ==
[2020-04-27 05:33] VITALS: BMI 27.5
== END | disposition home or self-care (01) ==
LOC: D.RAD 11:18
PROVIDERS: ATTEND Family Medicine
DX: M79.671 Pain in right foot (principal); M79.672 Pain in left foot

== ENCOUNTER → 2021-04-05 05:59 | Outpatient (CLI) | payer MEDICARE, OTHER ==
[2020-04-27 05:33] VITALS: BMI 27.5
== END | disposition home or self-care (01) ==
LOC: D.LAB 04-01 09:51
PROVIDERS: ATTEND Family Medicine
DX: E11.9 Type 2 diabetes mellitus without complications (principal); M79.672 Pain in left foot; N32.81 Overactive bladder

== ENCOUNTER → 2021-04-21 11:33 | Outpatient (CLI) | payer MEDICARE, OTHER ==
[2020-04-27 05:33] VITALS: BMI 27.5
== END | disposition home or self-care (01) ==
LOC: D.RAD 11:33
PROVIDERS: ATTEND Family Medicine
DX: R10.9 Unspecified abdominal pain (principal)

== ENCOUNTER → 2021-04-22 10:49 | Outpatient (CLI) | payer MEDICARE, OTHER ==
[2020-04-27 05:33] VITALS: BMI 27.5
== END | disposition home or self-care (01) ==
LOC: D.CT 10:49
PROVIDERS: ATTEND Family Medicine
DX: R93.5 Abnormal findings on diagnostic imaging of other abdominal regions, including retroperitoneum (principal); R91.1 Solitary pulmonary nodule; Z85.528 Personal history of other malignant neoplasm of kidney

== ENCOUNTER → 2021-04-25 10:19 | Outpatient (CLI) | payer MEDICARE, OTHER ==
[2020-04-27 05:33] VITALS: BMI 27.5
[~2021-04-25 10:19] MED LIST changes: +GLIPIZIDE5 MG PO; +LANTUS SOL100 UNIT/2 SC
[2021-04-25 11:31] LABS: BASOPHILS 0.4 % (0-2); EOSINOPHILS 2.2 % (0-7); HEMATOCRIT 33.5 % (36.0-48.0); HEMOGLOBIN 11.4 g/dL (12-16); LYMPHOCYTES 11.9 % (15-50); MCH 31.1 pg (26.0-34.0); MCHC 33.9 g/dL (31.0-37.0); MCV 91.9 fL (80.0-100.0); MEAN PLATELET VOLUME 7.6 fL (7.4-10.4); MONOCYTES 7.6 % (2-11); NEUTROPHILS 77.9 % (40-80); RBC 3.65 10x6/uL (4.00-5.40); RDW 12.9 % (11.5-14.5); WBC 8.2 10x3/uL (4.8-10.8)
[2021-04-25 11:33] LABS: PLATELET COUNT 277 10x3/uL (130-400)
[2021-04-25 11:46] LABS: ANION GAP 10.8 mmol/L (8-16); BILIRUBIN - TOTAL 0.53 mg/dL (0.2-1.3); CALCIUM 8.8 mg/dL (8.5-10.1); CARBON DIOXIDE 30.5 mmol/L (21.0-32.0); CREATININE - SERUM 1.8 mg/dL (0.6-1.3); POTASSIUM - SERUM 4.3 mmol/L (3.5-5.1); PROTEIN - SERUM 7.6 g/dL (6.4-8.2)
[2021-04-26 10:12] LABS: HEPATITIS C ANTIBODY <0.1 S/CO RAT (0.0-0.9)
== END | disposition home or self-care (01) ==
LOC: D.LAB 10:19
PROVIDERS: ATTEND Family Medicine
DX: R10.10 Upper abdominal pain, unspecified (principal); K85.90 Acute pancreatitis without necrosis or infection, unspecified; K82.9 Disease of gallbladder, unspecified; K46.9 Unspecified abdominal hernia without obstruction or gangrene

== ENCOUNTER 2021-04-27 09:35 | Inpatient (IN) | payer MEDICARE, OTHER ==
[~2021-04-27] VITALS: Ht 157.5 cm; Wt 67.7 kg
[~2021-04-27 09:35] MED LIST changes: -GLIPIZIDE5 MG PO; -LANTUS SOL100 UNIT/2 SC
[2021-04-27 10:11] LABS: BASOPHILS 0.4 % (0-2); EOSINOPHILS 3.5 % (0-7); HEMATOCRIT 33.4 % (36.0-48.0); HEMOGLOBIN 11.2 g/dL (12-16); LYMPHOCYTES 9.9 % (15-50); MCH 31.2 pg (26.0-34.0); MCHC 33.5 g/dL (31.0-37.0); MCV 93.3 fL (80.0-100.0); MEAN PLATELET VOLUME 7.5 fL (7.4-10.4); MONOCYTES 6.7 % (2-11); NEUTROPHILS 79.5 % (40-80); PLATELET COUNT 309 10x3/uL (130-400); RBC 3.58 10x6/uL (4.00-5.40); RDW 13.4 % (11.5-14.5); WBC 8.7 10x3/uL (4.8-10.8)
[2021-04-27 10:18] LABS: CALC OSMOLALITY 279 mosm/kg (275-300); CALCIUM 8.8 mg/dL (8.5-10.1); CARBON DIOXIDE 27.6 mmol/L (21.0-32.0); CHLORIDE - SERUM 98 mmol/L (98-107); CREATININE - SERUM 1.8 mg/dL (0.6-1.3); GLUCOSE 176 mg/dL (74-106); SODIUM 136 mmol/L (136-145); UREA NITROGEN 23 mg/dL (7-18); eGFR NON AFRICAN AMERICAN 29 mL/min (90-120)
[2021-04-27 10:27] LABS: ALBUMIN 2.9 g/dL (3.4-5.0); ALKALINE PHOSPHATASE 359 U/L (30-120); ALT (SGPT) 178 U/L (10-68); AMYLASE - SERUM 61 U/L (25-115); BILIRUBIN - TOTAL 0.52 mg/dL (0.2-1.3); LIPASE 235 U/L (73-393); PROTEIN - SERUM 7.5 g/dL (6.4-8.2)
[2021-04-27 10:28] LABS: TROPONIN-I < 0.017 ng/mL (0.000-0.060)
[2021-04-27 13:01] LABS: BACTERIA FEW HPF (<MOD); BILIRUBIN NEGATIVE (NEGATIVE); KETONE NEGATIVE mg/dL (< 1+); NITRITE NEGATIVE (NEGATIVE); SQUAMOUS EPITHELIAL 2 HPF (0-4); UROBILINOGEN NORMAL mg/dL (< 2); WHITE CELLS - URINE 1 HPF (0-4)
[2021-04-27 14:09] LABS: CKMB 0.6 U/L (0.0-3.6); CREATINE KINASE 61 UL (21-215)
[2021-04-27 14:11] LABS: TROPONIN-I < 0.017 ng/mL (0.000-0.060)
[2021-04-27 17:40] VITALS: BP 138/65
[2021-04-27] MEDS ORDERED: GLIPIZIDE5 MG PO (18:19)
[2021-04-27] MEDS ORDERED: LANTUS SOL100 UNIT/2 SC (18:19)
--- NOTE | 2021-04-27 19:06 | NUR ---
PATIENT TO ROOM AT THIS TIME. IV INTACT. NO COMPLAINTS. QUICK START COMPLETE. MED REC COMPLETE. VS STABLE. DENIES ANY NEEDS AT THIS TIME. CALL LIGHT WITHIN REACH. ORIENTED TO ROOM AND CALL LIGHT.
--- NOTE | 2021-04-27 19:09 | NUR ---
PATIENT IVF STARTED IN RIGHT AC ORDERED. NO COMPLAINTS AT THIS TIME. DENIES ANY NEEDS. CALL LIGHT WITHIN REACH.
[2021-04-27 19:29] LABS: CREATINE KINASE 56 UL (21-215)
[2021-04-27 19:34] LABS: TROPONIN-I < 0.017 ng/mL (0.000-0.060)
[2021-04-27 20:00] VITALS: BP 145/55
[2021-04-28] VITALS (7 sets, daily range): BP systolic 116–131; BP diastolic 49–60; Ht 157.5 cm; Wt 67.7 kg
[2021-04-28 02:05] LABS: CREATINE KINASE 53 UL (21-215)
[2021-04-28 02:07] LABS: TROPONIN-I < 0.017 ng/mL (0.000-0.060)
[2021-04-28 06:19] LABS: ALBUMIN 2.4 g/dL (3.4-5.0); ANION GAP 13.5 mmol/L (8-16); BILIRUBIN - TOTAL 0.41 mg/dL (0.2-1.3); CALCIUM 8.5 mg/dL (8.5-10.1); CARBON DIOXIDE 26.5 mmol/L (21.0-32.0); CREATININE - SERUM 1.6 mg/dL (0.6-1.3); PROTEIN - SERUM 6.6 g/dL (6.4-8.2)
[2021-04-28 06:30] LABS: BASOPHILS 0.7 % (0-2); EOSINOPHILS 4.6 % (0-7); HEMATOCRIT 30.7 % (36.0-48.0); HEMOGLOBIN 10.2 g/dL (12-16); LYMPHOCYTES 10.8 % (15-50); MCH 31.2 pg (26.0-34.0); MCHC 33.3 g/dL (31.0-37.0); MCV 93.7 fL (80.0-100.0); MEAN PLATELET VOLUME 7.9 fL (7.4-10.4); MONOCYTES 6.8 % (2-11); NEUTROPHILS 77.1 % (40-80); PLATELET COUNT 294 10x3/uL (130-400); RBC 3.27 10x6/uL (4.00-5.40); RDW 12.9 % (11.5-14.5)
[2021-04-28 06:48] LABS: WBC 6.2 10x3/uL (4.8-10.8)
--- NOTE | 2021-04-28 09:25 | NUR ---
ASSESSMENT PER FLOW SHEET. PATIENT IS WITHOUT DISTRESS.DENIES NEEDS AT PRESENT. DECLINES CATA, BS 126. MONITOR FOR NEEDS
[2021-04-29 04:00] VITALS: BP 111/48
--- NOTE | 2021-04-29 07:51 | NUR ---
PT'S TELEMETRY WAS REMOVED PER TELEMETRY PROTOCOL AND HER IV SITE WAS LEAKING AND IT WAS REMOVED. SHE DID NOT WANT ANOTHER ONE BECAUSE SHE THINKS SHE IS GOING HOME TODAY. WILL WAIT AND FIND OUT.
[2021-04-29 08:17] VITALS: BP 138/60
--- NOTE | 2021-04-29 08:34 | NUR ---
ASSESSMENT PER FLOW SHEET. PATIENT IS WITHOUT DISTRESS.STILL DECLINES IV START. HOPES TO DC TODAY. MEDS PER MAR. MONITOR FOR NEEDS.CALL LIGHT IN REACH
[2021-04-29] MEDS ORDERED: PROTONIX40 MG PO (10:55)
[2021-04-29 11:25] LABS: BASOPHILS 0.3 % (0-2); EOSINOPHILS 3.8 % (0-7); HEMATOCRIT 30.8 % (36.0-48.0); HEMOGLOBIN 10.3 g/dL (12-16); LYMPHOCYTES 10.9 % (15-50); MCH 30.7 pg (26.0-34.0); MCHC 33.5 g/dL (31.0-37.0); MCV 91.8 fL (80.0-100.0); MEAN PLATELET VOLUME 7.3 fL (7.4-10.4); MONOCYTES 6.6 % (2-11); NEUTROPHILS 78.4 % (40-80); PLATELET COUNT 316 10x3/uL (130-400); RBC 3.36 10x6/uL (4.00-5.40); RDW 13.4 % (11.5-14.5); WBC 6.5 10x3/uL (4.8-10.8)
[2021-04-29 11:34] LABS: INR 1.15 (0.85-1.17); PROTIME 13.6 SECONDS (11.6-15.0)
[2021-04-29 11:35] LABS: ALBUMIN 2.5 g/dL (3.4-5.0); ANION GAP 13.7 mmol/L (8-16); BILIRUBIN - DIRECT 0.13 mg/dL (0.00-0.30); BILIRUBIN - INDIRECT 0.3 mg/dL (0.00-1.00); BILIRUBIN - TOTAL 0.43 mg/dL (0.2-1.3); CALCIUM 8.5 mg/dL (8.5-10.1); CARBON DIOXIDE 24.8 mmol/L (21.0-32.0); CREATININE - SERUM 1.5 mg/dL (0.6-1.3); POTASSIUM - SERUM 4.5 mmol/L (3.5-5.1); PROTEIN - SERUM 6.6 g/dL (6.4-8.2)
[2021-04-29 12:19] VITALS: BP 125/61
--- NOTE | 2021-04-29 13:04 | NUR ---
DISCHARGE INSTRUCTIONS,STATES UNDERSTANDING.DECLINED WHEELCHAIR. LEFT UNIT WITH AT SIDE FOR TRANSPORT HOME
[2021-04-30 13:10] LABS: ANA REFLEX - DIRECT Negative (Negative)
--- NOTE | 2021-05-01 18:20 | MORECARE ---
CASE MANAGEMENT DISCHARGE SUMMARY PATIENT: HARRY HAYS UNIT: [id number] ADM DATE: 04/28/21 AGE: 76 : 45 SEX: F ROOM/BED: [facility] AUTHOR: DILLON,DOC PHYSICIAN: REFERRING PHYSICIAN: HAILEY PATEL MD DATE OF SERVICE: 05/01/21 Case Management Discharge Planning Summary DCP REVIEW SUMMARY ANTICIPATED D/C DATE: EXPECTED LOS : CASE STATUS: DCP Complete INITIAL REVIEW: 04/27/2021 INITIAL REVIEWER: Maryana Mehta FINAL DISCHARGE DISPOSITION: : FINAL REVIEWER: FINAL REVIEW DATE: DCP [employer] Questions & Answers QUESTION: ANSWER : PATIENT: HARRY HAYS ENCOUNTER: [id number] MEDICAL RECORD#: [id number] ADMISSION DATE: 04/28/2021 DISCHARGE DATE: 04/29/2021 ATTENDING MD: HAILEY HERCULES : AGE: 76 MARITAL STATUS: M DC PLAN ID: [id number] FACILITY: [facility] PRINTED ON: 05/01/21 18:19 CT All edits/amendments must be made on the electronic document DICTATION DATE: 05/01/211818 BURIAL VAULT SETTER: FILEMON 05/01/211818 RPT#: [id number] DC DATE:04/29/21 STATUS: DIS IN [facility] [address] [place] [address] END OF REPORT
== END 2021-04-29 13:05 | disposition home or self-care (01) | DRG 440 ==
LOC: D.ER 09:35 → OBSVTIME 16:30 → D.MS 16:30
PROVIDERS: Family Medicine; Internal Medicine Gastroenterology; ADMIT Family Medicine; ATTEND Family Medicine
DX: K85.80 Other acute pancreatitis without necrosis or infection (principal); R10.13 Epigastric pain; I12.9 Hypertensive chronic kidney disease with stage 1 through stage 4 chronic kidney disease, or unspecified chronic kidney disease; N18.32 Chronic kidney disease, stage 3b; Z79.4 Long term (current) use of insulin; E11.22 Type 2 diabetes mellitus with diabetic chronic kidney disease; E78.5 Hyperlipidemia, unspecified; N28.9 Disorder of kidney and ureter, unspecified; K74.60 Unspecified cirrhosis of liver